=== PATIENT | female | born 1995 | race Two or more races ===

== ENCOUNTER → 2023-09-15 | Outpatient (CLI) | payer MEDICAID ==
[2023-09-15 16:17] LABS: Urine Bacteria FEW /hpf (None Seen); Urine Blood 1+ /uL (Negative); Urine Clarity Turbid (Clear); Urine Color Light-Yellow (Yellow); Urine Mucus FEW (None Seen); Urine Protein, UAD TRACE (Negative); Urine Specific Gravity 1.029 (1.001-1.035); Urine Urobilinogen Normal (Negative); Urine WBC 47 /hpf (0 - 5); Urine pH 5.5 (5.0-9.0)
== END | disposition home or self-care (01) ==
LOC: LAB 15:34
DX: R31.29 Other microscopic hematuria (principal)
CPT/HCPCS: 36415; 81001